=== PATIENT | female | born 1980 | race Caucasian/White ===

== ENCOUNTER 2020-03-27 15:57 | Emergency (ER) | payer MEDICAID ==
--- NOTE | 2020-03-27 16:52 | EDM.PDOC ---
ED HPI GENERAL MEDICAL PROBLEM - General Chief Complaint: Laceration Stated Complaint: SUTURES RIPPED Time Seen by Provider: 03/27/20 16:14 Source of Information: Reports: Patient, RN Notes Reviewed History Limitations: Reports: No Limitations - History of Present Illness INITIAL COMMENTS - FREE TEXT/NARRATIVE: Patient is a 39-year-old female presenting to the emergency department with concerns that she ripped her sutures in her surgical incision. States she had carpal tunnel surgery 1 week ago. She lifted a bottle of milk with that hand and had a sharp pain in her hand. She thinks that the sutures may have ripped as the incision opened very slightly. She is scheduled to see her surgeon, Dr. Cervantes, on 11 April to have the sutures removed. Right Hand Pain Score (Numeric/FACES): 7 - Related Data Allergies Allergy/AdvReac Type Severity Reaction Status Date / Time meperidine [From Demerol] Allergy Nausea Verified 03/27/20 16:11 Home Meds: Home Meds Gabapentin [Neurontin] 600 mg PO TID 03/27/20 [History] Lacosamide [Vimpat] 150 mg PO BID 03/27/20 [History] metFORMIN [Glucophage] 500 mg PO BID 03/27/20 [History] Past Medical History HEENT History: Reports: Other (See Below) Other HEENT History: glasses Respiratory History: Reports: Asthma Gastrointestinal History: Reports: GERD, Other (See Below) Other Gastrointestinal History: egd BLOOD COORDINATOR History: Reports: Musculoskeletal History: Reports: Other (See Below) Other Musculoskeletal History: r carpal tunnel Psychiatric History: Reports: PTSD Endocrine/Metabolic History: Reports: Diabetes, Type II - Past Surgical History HEENT Surgical History: Reports: Adenoidectomy, Tonsillectomy GI Surgical History: Reports: Appendectomy, Cholecystectomy, Polypectomy, Other (See Below) Other GI Surgeries/Procedures: hernia Social & Family History - Tobacco Use Tobacco Use Status *Q: Current Every Day Tobacco User Years of Tobacco use: 25 Packs/Tins Daily: 0.5 - Caffeine Use Caffeine Use: Reports: Coffee, Soda - Recreational Drug Use Recreational Drug Use: No ED ROS GENERAL - Review of Systems Review Of Systems: Comprehensive ROS is negative, except as noted in HPI. ED EXAM, SKIN/RASH Exam: See Below Exam Limited By: No Limitations General Appearance: Alert, WD/WN, No Apparent Distress Respiratory/Chest: No Respiratory Distress, Lungs Clear, Normal Breath Sounds, No Accessory Muscle Use, Chest Non-Tender Cardiovascular: Normal Peripheral Pulses, Regular Rate, Rhythm, No Edema, No Gallop, No JVD, No Murmur, No Rub GI/Abdominal: Normal Bowel Sounds, Soft, Non-Tender, No Organomegaly, No Distention, No Abnormal Bruit, No Mass Neurological: Alert, Oriented, CN II-XII Intact, Normal Cognition, Normal Gait, Normal Reflexes, No Motor/Sensory Deficits Psychiatric: Normal Affect, Normal Mood Skin: Other (To the palmar aspect of the right hand. Wound is very minimally gaping, approximately 1 to 2 mm. Horizontal mattress sutures are intact beneath this. No active bleeding or discharge. No signs of infection.) Course - Vital Signs Last Recorded V/S: Last Vital Signs Temp 96.8 F L 03/27/20 16:07 Pulse 100 03/27/20 16:07 Resp 20 03/27/20 16:07 BP 157/120 H 03/27/20 16:07 Pulse Ox 98 03/27/20 16:07 - Re-Assessments/Exams Free Text/Narrative Re-Assessment/Exam: Patient is a 39-year-old female presenting to the emergency department with concerns that she ripped her sutures into the surgical incision from her carpal tunnel surgery which was done 1 week ago. On exam, the horizontal mattress sutures are in place and I have not ripped. The surface of the incision is very minimally gaping, approximately 1 to 2 mm. Discussed with patient that she likely disrupted the healing of the incision but that the sutures themselves are still in place beneath the level of this. Discussed that it is not recommended to add any additional sutures to the risk for infection. Area was cleansed with chlorhexidine soap and sterile saline. 2 Steri-Strips were applied to the area to hold the incision approximated. Gauze wrap and an elastic bandage was applied. Recommend no lifting with this hand. Call her surgeon, Dr. Singh, audible tomorrow to update. I will write a very short prescription for Prospect for pain. Recommend routine Tylenol. Discharge instructions as documented. Departure - Departure Time of Disposition: 16:51 Disposition: Home, Self-Care 01 Condition: Good Clinical Impression: Visit for wound check - Discharge Information *PRESCRIPTION DRUG MONITORING PROGRAM REVIEWED*: No *COPY OF PRESCRIPTION DRUG MONITORING REPORT IN PATIENT KWAN: No Referrals: Miladis Barron MD [Primary Care Provider] - Akshat Cervantes Sr, MD [Physician] - Additional Instructions: You were seen in the emergency department today for evaluation of your carpal tunnel surgery surgical incision. As discussed, the sutures are still in place, however the healing on the surface of the incision was disrupted. Steri-Strips have been applied. Leave these in place for the next few days. Use Tylenol routinely for pain. For pain not relieved by Tylenol, very short prescription for Prospect has been provided. Ice the area intermittently over the next few days. Recommend that you contact your orthopedic surgeon tomorrow to make them aware of today's occurrences. Return to the ER as needed. Sepsis Event Note (ED) - Evaluation Sepsis Screening Result: No Definite Risk - Focused Exam Vital Signs: Vital Signs Temp Pulse Resp BP Pulse Ox 03/27/20 16:07 96.8 F L 100 20 157/120 H 98
== END 2020-03-27 17:00 | disposition home or self-care (01) ==
LOC: JD.ED 15:57
DX: Z48.01 Encounter for change or removal of surgical wound dressing (principal); J45.909 Unspecified asthma, uncomplicated; E11.9 Type 2 diabetes mellitus without complications; F17.210 Nicotine dependence, cigarettes, uncomplicated; Z88.8 Allergy status to other drugs, medicaments and biological substances; Z79.899 Other long term (current) drug therapy
CPT/HCPCS: 99282

== ENCOUNTER 2022-04-01 02:07 | Emergency (ER) | payer OTHER, MEDICAID ==
[2022-04-01] MEDS ORDERED: HYDROmorphone 0.5 MG/0.5 ML Syringe IM ONE (02:55)
[2022-04-01] MEDS ORDERED: HYDROmorphone 0.5 MG/0.5 ML Syringe IVPUSH ONE (02:57)
== END 2022-04-01 05:15 | disposition home or self-care (01) ==
LOC: JD.ED 02:07
DX: T14.8XXA Other injury of unspecified body region, initial encounter (principal); E78.00 Pure hypercholesterolemia, unspecified; I10 Essential (primary) hypertension; K21.9 Gastro-esophageal reflux disease without esophagitis; E11.9 Type 2 diabetes mellitus without complications; F17.210 Nicotine dependence, cigarettes, uncomplicated; E66.9 Obesity, unspecified; Z68.33 Body mass index [BMI] 33.0-33.9, adult; Z79.84 Long term (current) use of oral hypoglycemic drugs; Z88.8 Allergy status to other drugs, medicaments and biological substances; V53.5XXA Driver of pick-up truck or van injured in collision with car, pick-up truck or van in traffic accident, initial encounter; Y92.410 Unspecified street and highway as the place of occurrence of the external cause
CPT/HCPCS: 70450; 70450-26; 72125; 72125-26; 73030-26-LT; 73030-LT; 96374; 99285-25; J1170

== ENCOUNTER 2022-08-25 21:24 | Emergency (ER) | payer MEDICAID, OTHER | END 2022-08-25 23:09 | disposition home or self-care (01) | LOC: JD.ED 21:24 | DX: S93.401A Sprain of unspecified ligament of right ankle, initial encounter (principal); E78.00 Pure hypercholesterolemia, unspecified; I10 Essential (primary) hypertension; J45.909 Unspecified asthma, uncomplicated; E11.9 Type 2 diabetes mellitus without complications; E66.9 Obesity, unspecified; Z68.33 Body mass index [BMI] 33.0-33.9, adult; Z88.5 Allergy status to narcotic agent; X50.1XXA Overexertion from prolonged static or awkward postures, initial encounter | CPT/HCPCS: 73610-26-RT; 73610-RT; 99283 ==

== ENCOUNTER 2023-01-03 17:17 | Emergency (ER) | payer MEDICAID | END 2023-01-03 20:50 | disposition home or self-care (01) | LOC: JD.ED 17:17 | DX: I83.92 Asymptomatic varicose veins of left lower extremity (principal); I10 Essential (primary) hypertension; I25.2 Old myocardial infarction; J45.909 Unspecified asthma, uncomplicated; E66.9 Obesity, unspecified; F17.210 Nicotine dependence, cigarettes, uncomplicated; Z88.1 Allergy status to other antibiotic agents; Z91.09 Other allergy status, other than to drugs and biological substances; Z91.040 Latex allergy status; Z68.32 Body mass index [BMI] 32.0-32.9, adult | CPT/HCPCS: 73630-26-LT; 73630-LT; 93971-26-LT; 93971-LT; 99284 ==

== ENCOUNTER 2024-07-16 16:13 | Emergency (ER) | payer MEDICAID ==
[2024-07-16] MEDS: Ondansetron 4 MG/2 ML SDV IVPUSH ONE (17:12)
[2024-07-16] MEDS: Sodium Chloride 0.9% 1,000 ML IV ONE (17:14)
[2024-07-16 17:51] LABS: BASOPHILS PERCENT AUTO 0.3 % (0.0-1.0); EOSINOPHILS ABSOLUTE AUTO 0.7 K/mm3 (0.0-0.4); EOSINOPHILS PERCENT AUTO 6.1 % (0.0-6.0); HEMATOCRIT 38.5 % (37.0-47.0); HEMOGLOBIN 13.4 gm/dl (12.0-16.0); IMMATURE GRAN ABSOLUTE AUTO 0.03 K/mm3 (0.00-0.05); IMMATURE GRAN PERCENT AUTO 0.3 % (0.0-0.4); LYMPHOCYTES ABSOLUTE AUTO 4.1 K/mm3 (1.0-4.8); MEAN CORPUSCULAR HEMOGLOBIN 30.6 pg (28.0-32.0); MEAN CORPUSCULAR HGB CONC 34.8 g/dl (32.0-36.0); MEAN CORPUSCULAR VOLUME 87.9 fl (83.0-99.0); MEAN PLATELET VOLUME 10.3 fl (9.4-12.3); MONOCYTES ABSOLUTE AUTO 0.6 K/mm3 (0.0-0.8); MONOCYTES PERCENT AUTO 4.8 % (0.0-8.0); NEUTROPHILS ABSOLUTE AUTO 6.2 K/mm3 (1.8-7.7); NEUTROPHILS PERCENT AUTO 53.5 % (41.0-71.0); PLATELET COUNT,PLT 320 K/mm3 (150-400); RED BLOOD CELL COUNT 4.38 M/mm3 (4.10-5.30); WHITE BLOOD CELL COUNT,WBC 11.56 K/mm3 (3.9-11.3)
[2024-07-16 17:56] LABS: INR 1.03; PROTHROMBIN TIME 10.9 SECONDS (9.7-12.0)
[2024-07-16 17:57] LABS: ALBUMIN 3.4 g/dl (3.4-5.0); ANION GAP 9.7 (5-15); BILIRUBIN TOTAL 0.3 mg/dL (0.2-1.0); BUN/CREATININE RATIO 4.4 (14-18); CALCIUM 8.8 mg/dL (8.5-10.1); CREATININE 0.9 mg/dL (0.55-1.02); EST CRCL DRUG DOSING (CG) 71.03 mL/min; POTASSIUM,K 3.7 mEq/L (3.5-5.1); PROTEIN TOTAL,TP 6.8 g/dl (6.4-8.2)
[2024-07-16] MEDS: Pantoprazole 40 MG Vial IVPUSH ONE (18:26)
[2024-07-16] MEDS: Famotidine 20 MG/2 ML SDV IVPUSH ONE (18:30)
[2024-07-16] MEDS: Magnesium Sulf/Wat 4 GM/50 mL 4 GM in Premix Bag 1 BAG IV ONE (19:17)
[2024-07-16] MEDS: Sucralfate 1 GM Tab PO ONE (20:41)
== END 2024-07-16 22:41 | disposition home or self-care (01) ==
LOC: JD.ED 16:13
DX: K25.4 Chronic or unspecified gastric ulcer with hemorrhage (principal); I10 Essential (primary) hypertension; E78.00 Pure hypercholesterolemia, unspecified; I25.2 Old myocardial infarction; F17.210 Nicotine dependence, cigarettes, uncomplicated; Z86.16 Personal history of COVID-19; Z90.49 Acquired absence of other specified parts of digestive tract; Z91.048 Other nonmedicinal substance allergy status; Z91.040 Latex allergy status; Z88.8 Allergy status to other drugs, medicaments and biological substances; Z79.84 Long term (current) use of oral hypoglycemic drugs; Z79.899 Other long term (current) drug therapy
CPT/HCPCS: 36415; 71045; 80053; 81025; 83690; 83735; 85025; 85610; 96361; 96365; 96366; 96375; 99284; A9270; J2405; J2470; J3475; J7030

== ENCOUNTER 2024-09-01 16:29 | Emergency (ER) | payer MEDICAID ==
[2024-09-01] MEDS ORDERED: Sodium Chloride 0.9% 10 ML Syringe FLUSH PRN (17:09)
[2024-09-01] MEDS: Albuterol/Ipratropium 3.0-0.5 MG/3 ML Neb Soln NEB ONE (18:01)
[2024-09-01 18:10] LABS: BASOPHILS PERCENT AUTO 0.4 % (0.0-1.0); EOSINOPHILS ABSOLUTE AUTO 0.8 K/mm3 (0.0-0.4); EOSINOPHILS PERCENT AUTO 7.8 % (0.0-6.0); HEMATOCRIT 42.7 % (37.0-47.0); HEMOGLOBIN 14.3 gm/dl (12.0-16.0); IMMATURE GRAN ABSOLUTE AUTO 0.03 K/mm3 (0.00-0.05); IMMATURE GRAN PERCENT AUTO 0.3 % (0.0-0.4); LYMPHOCYTES ABSOLUTE AUTO 3.4 K/mm3 (1.0-4.8); LYMPHOCYTES PERCENT AUTO 32.7 % (24.0-44.0); MEAN CORPUSCULAR HEMOGLOBIN 30.9 pg (28.0-32.0); MEAN CORPUSCULAR HGB CONC 33.5 g/dl (32.0-36.0); MEAN CORPUSCULAR VOLUME 92.2 fl (83.0-99.0); MEAN PLATELET VOLUME 10.2 fl (9.4-12.3); MONOCYTES ABSOLUTE AUTO 0.6 K/mm3 (0.0-0.8); MONOCYTES PERCENT AUTO 5.6 % (0.0-8.0); NEUTROPHILS ABSOLUTE AUTO 5.4 K/mm3 (1.8-7.7); NEUTROPHILS PERCENT AUTO 53.2 % (41.0-71.0); PLATELET COUNT,PLT 345 K/mm3 (150-400); RED BLOOD CELL COUNT 4.63 M/mm3 (4.10-5.30); WHITE BLOOD CELL COUNT,WBC 10.23 K/mm3 (3.9-11.3)
[2024-09-01 18:31] LABS: A/G RATIO 0.9 (1-2); ALBUMIN 3.5 g/dl (3.4-5.0); ANION GAP 13.4 (5-15); BILIRUBIN TOTAL 0.4 mg/dL (0.2-1.0); BUN/CREATININE RATIO 8.8 (14-18); C-REACTIVE PROTEIN 0.37 mg/dL (<0.30); CALCIUM 9.5 mg/dL (8.5-10.1); CREATININE 0.8 mg/dL (0.55-1.02); EST CRCL DRUG DOSING (CG) 82.43 mL/min; POTASSIUM,K 4.4 mEq/L (3.5-5.1); PROTEIN TOTAL,TP 7.3 g/dl (6.4-8.2)
[2024-09-01] MEDS: cefTRIAXone 2 GM in Sodium Chloride 0.9% 100 ML IV ONE (19:48)
== END 2024-09-01 20:32 | disposition home or self-care (01) ==
LOC: JD.ED 16:29
DX: J01.90 Acute sinusitis, unspecified (principal); I10 Essential (primary) hypertension; I25.2 Old myocardial infarction; E11.9 Type 2 diabetes mellitus without complications; F17.210 Nicotine dependence, cigarettes, uncomplicated; E78.00 Pure hypercholesterolemia, unspecified; Z86.16 Personal history of COVID-19; Z91.048 Other nonmedicinal substance allergy status; Z91.018 Allergy to other foods; Z91.041 Radiographic dye allergy status; Z79.899 Other long term (current) drug therapy; Z90.49 Acquired absence of other specified parts of digestive tract
CPT/HCPCS: 36415; 71045; 80053; 85025; 86140; 87428; 87651; 94640; 96365; 99285; J0696; J7620; 99283; A9270-GY